=== PATIENT | female | born 1965 | race Caucasian/White ===

== ENCOUNTER → 2021-03-18 | Outpatient (CLI) | payer MEDICARE ==
[~2021-03-18] MED LIST: CLEOCIN HCL300 MG PO; CYCLOBENZAPRINE10 MG PO; CYMBALTA60 MG PO; ELAVIL 10 MG TA10 MG PO; HEARTBURN RELIE20 MG PO; IBUPROFEN800 MG PO; LYRICA150 MG PO; NORVASC5 MG PO; PLAQUENIL200 MG PO; ROPINIROLE HCL0.5 MG PO
== END ==
LOC: MAMO 10:32
DX: Z12.31 Encounter for screening mammogram for malignant neoplasm of breast (principal)
CPT/HCPCS: 77063; 77067

== ENCOUNTER → 2021-04-24 | Outpatient (CLI) | payer MEDICARE | LOC: US 04-15 14:30 | DX: R92.8 Other abnormal and inconclusive findings on diagnostic imaging of breast (principal) | CPT/HCPCS: 76641 ==